=== PATIENT | male | born 1995 ===

== ENCOUNTER 2024-12-31 18:05 | Emergency (ER) | payer BC, SELFPAY ==
[2024-12-31 18:09] VITALS: BP 135/87; PULSE 77; RESP 20; TEMP 36.5; O2SAT 98
[2024-12-31 18:12] VITALS: BP 135/87; PULSE 77; RESP 20; TEMP 36.5; O2SAT 98
--- NOTE | 2024-12-31 19:00 | DI.CT_ITS ---
Exam(s) CT ABDOMEN PELVIS W EXAM: CT ABDOMEN PELVIS W CLINICAL HISTORY: upper abdominal pain TECHNIQUE: Imaging Protocol: Axial computed tomography images with coronal and sagittal reformatted images were created and reviewed. CONTRAST MATERIAL: Intravenous: Omnipaque 350 Contrast volume:100 mL Oral: No COMPARISON: No exams were available for comparison FINDINGS: ABDOMEN: Lung Bases: No acute abnormality. Liver: Normal density. No measurable mass. Portal, Superior Mesenteric, and Splenic Veins: Unremarkable. Gallbladder and Biliary Tract: Gallbladder is contracted. No stones or biliary ductal dilatation is present. Pancreas: Normal density, no abnormal calcifications or inflammatory process. Spleen: Normal. Adrenals: No masses seen. Kidneys: Normal size, contour and axis. No radiodense stones or obstructive uropathy. No masses seen. Abdominal Aorta: Abdominal portion non-dilated. Bowel: There is no evidence of obstruction. There is mild bowel wall thickening in loops of the prox imal small bowel. This can be seen with an enteritis. Appendix is unremarkable. Peritoneal Cavity: There is mild inflammatory stranding seen between the pancreas and the stomach. N o focal fluid collection is seen in this region. No free air. Lymph Nodes: Within normal limits. Bones: Within normal limits for the patient's age. Soft Tissues: Unremarkable. PELVIS: Bladder: Symmetric distention, no gross wall thickening. Reproductive Organs: Unremarkable as visualized. Lymph Nodes: Within normal limits. Bones: Within normal limits for the patient's age. IMPRESSION: 1. Mild bowel wall thickening seen in loops of small bowel in the left abdomen which may represent an enteritis. 2. Mild inflammatory stranding interposed between the stomach and the pancreas. This may represent a n inflammatory process such as gastritis or pancreatitis. Please correlate clinically. 3. The preliminary [facility] report was reviewed. RADIATION DOSE DELIVERED: 449.56mGy.cm Total DLP DATA REPOSITORY: All CT scans at this facility are submitted to the National Radiology Data Registry (NRDR) Dose Index Registry (DIR) with the [employer] ([employer]). RADIATION OPTIMIZATION: All CT scans at this facility use at least one of these dose optimization te chniques: automated exposure control; mA and/or kV adjustment per patient size (includes targeted exa ms where dose is matched to clinical indication); or iterative reconstruction.
[2024-12-31 19:22] LABS: Abs Immature Grans 0.02 10^3/uL (0.0-0.06); Absolute Basophil Count 0.04 10^3/uL (0.0-0.2); Absolute Eosinophil Count 0.04 10^3/uL (0.0-0.7); Absolute Lymphocyte Count 1.56 10^3/uL (1.2-3.4); Absolute Monocyte Count 1.01 10^3/uL (0.1-0.8); Basophils % 0.5 %; Eosinophils % 0.5 %; HCT 47.3 % (40.0-50.0); HGB 16.2 g/dL (13.5-17.5); Immature Grans % 0.3 %; Lymphocytes % 19.6 %; MCH 29.7 pg (27.0-33.0); MCHC 34.2 % (32.0-36.0); MCV 87 fL (80-95); MPV 9.9 fL (8.0-11.0); Monocytes % 12.7 %; Neutrophils % 66.4 %; Platelet Count 164 10^3/uL (130-400); RBC 5.45 10^6/uL (4.36-5.78); RDW 12.5 % (11.8-14.1); RDW-SD 39.2 fL; WBC 7.97 10^3/uL (4.4-10.8)
[2024-12-31 19:23] LABS: Bilirubin Negative (Negative); Blood Negative (Negative); Clarity Clear (Clear); Glucose Negative (Negative); Ketones Negative (Negative); Leukocyte Esterase Negative (Negative); Nitrite Negative (Negative); Urobilinogen 0.2 mg/dL (Up to 0.2)
[2024-12-31] MEDS: Lidocaine 2% Viscous 15 ML CUP (19:26)
[2024-12-31] MEDS: Omnipaque 350 MG/ML 100 ML BTL IJ (19:26)
[2024-12-31] MEDS: Pantoprazole 40 MG VIAL IVP (19:27)
[2024-12-31] MEDS: Normal Saline - Diluent 50 ML VIAL IJ (19:27)
--- NOTE | 2024-12-31 19:45 | ED.GENADUL_ITS ---
Discharge Plan Disposition Patient Disposition: Home Condition: Stable Discharge Details Clinical Impression: Abdominal pain, Acid reflux Primary Care Provider: None,None ED Provider: Drake Viera Home Meds and New Rx's Prescriptions: Continued cholecalciferol (vitamin D3) [Vitamin D3] 25 mcg (1,000 unit) capsule 25 mcg PO DAILY magnesium 200 mg tablet 200 mg PO DAILY omega 4-jmu-dzb-fish oil [Fish Oil] 1,000 (120-180) mg capsule 1 cap PO DAILY Discharge Instructions Instructions: Acid reflux and GERD in adults Additional Instructions: Your CAT scan showed inflammation of your esophagus and stomach area where they connect. This usually indicates acid reflux. I recommend taking a daily 20 mg omeprazole and you can also increase this to 40 mg if you are not finding the 20 mg daily effective. Try to follow-up with a primary care provider especially if the symptoms continue. If you feel significantly more ill or have new symptoms such as persistent vomiting or high fevers return to the emergency department for reevaluation HPI General Mode of arrival: ambulatory . Date/Time Provider Initiated Documentation: 12/31/24 18:09 . Limitations to Documentation: no limitations . Information obtained by: patient . History of Present Illness 29 year old M presents to the emergency department with the chief complaint of abdominal pain, described as moderate, Quality is described as other (cramping, aching), and is localized to the abdomen. Patient reports no radiation. Patient started experiencing this week(s) (1) and it has been intermittent. No relieving factors improve symptom(s), No exacerbating factors reported . Patient notes denies chest pain and shortness of breath. Patient did receive the following treatments prior to arrival, none Related Data Home Medications ?Medication ?Instructions ?Recorded ?Confirmed cholecalciferol (vitamin D3) 25 25 mcg PO DAILY 12/31/24 12/31/24 mcg (1,000 unit) capsule (Vitamin D3) magnesium 200 mg tablet 200 mg PO DAILY 12/31/24 12/31/24 omega 2-krs-gnl-fish oil 1,000 mg 1 cap PO DAILY 12/31/24 12/31/24 (120 mg-180 mg) capsule (Fish Oil) Allergies Allergy/AdvReac Type Severity Reaction Status Date / Time No Known Allergies Allergy Unverified 12/31/24 18:14 General Stated Complaint: Abd Prob SHAW: 3 Review of Systems All systems reviewed & are unremarkable except as noted in HPI and below Constitutional Constitutional: Denies chills, Denies fever(s) and Denies weakness Cardiovascular Cardiovascular: Denies chest pain and Denies dyspnea Respiratory Respiratory: Denies cough and Denies dyspnea Gastrointestinal Gastrointestinal: Reports abdominal pain and Denies vomiting Neurologic Neurologic: Denies weakness Psychiatric Psychiatric: Denies depression Exam Const General: no acute distress Orientation: alert HENMT Head: normal to inspection Ears: external ears normal General nose exam: external nose normal Mouth: moist mucous membranes Eyes General: appearance normal, both eyes and all related structures Neck Neck: normal visual inspection Resp Effort & Inspection: normal respiratory effort and able to speak in complete sentences Cardio Rate: regular rate GI Palpation: soft and tender Skin General skin exam: no rashes or lesions noted Neuro General: patient alert and patient oriented x3 Extrem General: normal to inspection Psych Mental Status: mental status grossly normal Course Vital Signs Vital signs: Vital Signs Temperature 36.5 C 12/31/24 18:09 Pulse 77 12/31/24 18:09 Respiratory Rate 20 12/31/24 18:09 Blood Pressure 135/87 12/31/24 18:09 Pulse Oximetry 98 12/31/24 18:09 Temperature 36.5 C 12/31/24 18:12 Pulse 77 12/31/24 18:12 Respiratory Rate 20 12/31/24 18:12 Blood Pressure 135/87 12/31/24 18:12 Blood Pressure Position Sitting 12/31/24 18:12 Pulse Oximetry 98 12/31/24 18:12 Oxygen Delivery Method Room Air 12/31/24 18:12 Oxygen Flow Rate 0 12/31/24 18:12 Lab/Test Results Lab/Test Results: Laboratory Tests Range/Units 12/31/24 19:10 WBC (4.4-10.8) 10^3/uL 7.97 RBC (4.36-5.78) 10^6/uL 5.45 Hgb (13.5-17.5) g/dL 16.2 Hct (40.0-50.0) % 47.3 MCV (80-95) fL 87 MCH (27.0-33.0) pg 29.7 MCHC (32.0-36.0) % 34.2 RDW (11.8-14.1) % 12.5 Plt Count (130-400) 10^3/uL 164 MPV (8.0-11.0) fL 9.9 Immature Gran % % 0.3 Neutrophils % % 66.4 Lymphocytes % % 19.6 Monocytes % % 12.7 Eosinophils % % 0.5 Basophils % % 0.5 Nucleated RBC % (0.0-0.3) % 0.0 Absolute Neutrophils (1.2-6.7) 10^3/uL 5.30 Absolute Lymphocytes (1.2-3.4) 10^3/uL 1.56 Absolute Monocytes (0.1-0.8) 10^3/uL 1.01 H Absolute Eosinophils (0.0-0.7) 10^3/uL 0.04 Absolute Basophils (0.0-0.2) 10^3/uL 0.04 Urine Color (Yellow) Yellow Urine Clarity (Clear) Clear Urine pH (5-8) 6.0 Ur Specific [place] (1.005-1.025) 1.010 Urine Protein (Neg-Trace) mg/dL Negative Urine Ketones (Negative) mg/dL Negative Urine Blood (Negative) Negative Urine Nitrite (Negative) Negative Urine Bilirubin (Negative) Negative Urine Urobilinogen (Up to 0.2) mg/dL 0.2 Ur Leukocyte Esterase (Negative) Negative Urine Glucose (Negative) mg/dL Negative Medical Decision Making 29-year-old male who denies any chronic medical problems, denies smoking, alcohol or drug use, denies prior abdominal surgeries comes in with 1 week of intermittent abdominal bloating and upper abdominal pain and cramping. Denies any vomiting, fevers, chills, chest pain, difficulty breathing, diarrhea or urinary symptoms. He is well-appearing on exam in no distress. He has a soft nondistended abdomen with pain in the left upper quadrant, epigastric and right upper quadrant without guarding and negative David sign. He has no lower abdominal tenderness. I suspect he could have GERD versus irritable bowel versus ulcer, will proceed with CBC, CMP, lipase and CT abdomen pelvis to evaluate for entities such as pancreatitis and enteritis was seems less likely given lack of diarrhea. Will treat symptoms with a PPI and Mylanta. Labs and imaging show no emergent findings. Does have inflammation of the GE junction which fits with his epigastric pain. Feels better after Mylanta and Protonix. I suspect acid reflux, and esophagitis. I have started him on a daily PPI and advised to try and follow-up with a primary care provider. Return precautions given Differential Diagnosis Differential Diagnosis: GERD, ulcer Quality:SDOH Health Related Social Needs: No Data to Display PFSH All Active Problems (Updated 12/31/24 @ 20:36 by Drake Viera MD) Acid reflux (Chronic) Abdominal pain (Acute) Social History Smoking risk assessment performed?: No
[2024-12-31 19:48] LABS: ALT 39 U/L (16-63); AST 16 U/L (15-37); Alkaline Phosphatase 97 U/L (46-116); Anion Gap 6.2 mmol/L (3-11); BUN 10 mg/dL (7-18); Bilirubin, Direct 0.3 mg/dL (0.0-0.2); Bilirubin, Total 1.2 mg/dL (0.2-1.0); CO2 31.8 mmol/L (21.0-32.0); CREATININE 1.2 mg/dL (0.70-1.30); Calcium 9.6 mg/dL (8.5-10.1); Chloride 103 mmol/L (98-107); Glucose 100 mg/dL (74-106); Potassium 3.4 mmol/L (3.5-5.1); Sodium 141 mmol/L (136-145); Total Protein 8.3 g/dL (6.4-8.2)
--- NOTE | 2024-12-31 20:12 | DI.[facility]_ITS ---
PROCEDURE INFORMATION: Exam: CT Abdomen And Pelvis With Contrast Exam date and time: 12/31/2024 19:32 Age: 29 years old Clinical indication: Localized; Upper abdominal pain multiple days TECHNIQUE: Imaging protocol: Computed tomography of the abdomen and pelvis with contrast. COMPARISON: No relevant prior studies available. FINDINGS: Liver: No mass. Gallbladder and biliary ducts: No calcified stones. No gross ductal dilation. Pancreas: No ductal dilation. No mass . Spleen: No splenomegaly or suspicious lesions. Adrenal glands: No suspicious mass. Kidneys and ureters: No hydronephrosis. No masses. Stomach and bowel: Trace edema is possible at the GE junction. Otherwise normal appearance of the stomach.Normal CT appearance of the duodenum. No focal pathology in the small bowel. No colitis or diverticular disease. Appendix: No evidence of appendicitis. Intraperitoneal space: No free air. No significant fluid collection. Vasculature: No abdominal aortic aneurysm. Lymph nodes: No significantly enlarged lymph nodes. Urinary bladder: No gross wall thickening. Reproductive: Unremarkable as visualized. Bones/joints: No acute fracture. Soft tissues: No suspicious lesions. IMPRESSION: Possible minor inflammation of the GE junction ; please correlate clinically. Dictated and Authenticated by: Lisa Valencia MD. Orderin Maximiliano Juan MD
== END 2024-12-31 20:57 | disposition home or self-care (01) ==
PROVIDERS: Emergency Provider Emergency Medicine
DX: R10.13 Epigastric pain (principal); K21.9 Gastro-esophageal reflux disease without esophagitis
CPT/HCPCS: 36415; 80053; 96374; 99285; 74177; 81003; 82248; 83735; 84443; 85025; 99284; J2470; J3490